=== PATIENT | male | born 1985 | race Two or more races ===

== ENCOUNTER 2018-03-19 11:00 | Emergency (ER) | payer SELFPAY ==
[~2018-03-19] VITALS: Ht 162.6 cm; Wt 77.1 kg
[2018-03-19 11:22] VITALS: BP 122/78
--- NOTE | 2018-03-19 11:39 | Emergency Room Report ---
History of Present Illness General Chief Complaint: Lower Back Pain or Injury Source: Patient Present Illness HPI Patient sent in for lumbar pain. He says he has had this for 2 years but recently after straining his back at work the pain became severe. He's never had a full evaluation of his back before with x-rays. He was bending at work when the pain became more severe. No meds taken. Pain now rated 6/10. He feels a muscle "ball" in left lower back (spasm). Worse when he bends over and lifts things. No fevers, numbness, weakness, incontinence, saddle numbness, blood thinners, trauma, oncologic problems. No chest pain, NVD, dysuria, extremity pain, headache. He works at a [employer]. Allergies: Coded Allergies: No Known Allergies (Unverified , 03/19/18) Patient History Past Medical History: see triage record Social History: Reports: smoking, alcohol use Social History Narrative works at [employer] Reviewed Nursing Documentation: PMH: Agreed; PSxH: Agreed Nursing Documentation-PMH Past Medical History: No Stated History Review of Systems All Other Systems: negative except mentioned in HPI Physical Exam Vital Signs Date Time Temp Pulse Resp B/P (MAP) Pulse Ox O2 Delivery O2 Flow Rate FiO2 03/19/18 11:15 98.2 72 18 122/78 95 Room Air 98.2 Sp02 EP Interpretation: reviewed, normal General Appearance: well appearing, no apparent distress, GCS 15 Head: normocephalic, atraumatic Eyes: bilateral eye normal inspection, bilateral eye PERRL ENT: hearing grossly normal, normal voice, moist mucus membranes Neck: full range of motion, supple, no bony tend Respiratory: chest non-tender, lungs clear, no respiratory distress, speaking full sentences Cardiovascular #1: regular rate, rhythm Cardiovascular #2: 2+ radial (L) Gastrointestinal: normal inspection Musculoskeletal: digits/nails normal, gait/station normal, other - paraspinous tenderness with muscle spasm bilat, more on L Neurologic: alert, motor strength/tone normal, DTRs symmetric, sensory intact, cerebellar normal, normal gait, speech normal Psychiatric: mood/affect normal Skin: no rash Medical Decision Making Diagnostic Impression: Primary Impression: Lumbar strain Qualified Codes: S39.012A - Strain of muscle, fascia and tendon of lower back , initial encounter Additional Impression: Muscle spasm ER Course Patient presents with acute exacerbation of lumbar pain. The mechanism does not require x-rays however the fact that he's never had a workup after injury 2 years ago, x-rays are indicated at this time. In addition a urinalysis be checked. The patient be given Motrin. Xrays without significant abnormalities. UA clear. Improved with motrin. Discussed findings and need for physical therapy and exercises. Patient stable for outpatient observation and treatment. Laboratory Tests Test 03/19/18 12:30 Urine Color Pale yellow Urine Appearance Clear Urine pH 6 (4.5-8.0) Urine Specific [place] 1.015 (1.005-1.035) Urine Protein Negative (NEGATIVE) Urine Glucose (UA) Negative (NEGATIVE) Urine Ketones Negative (NEGATIVE) Urine Occult Blood Negative (NEGATIVE) Urine Nitrite Negative (NEGATIVE) Urine Bilirubin Negative (NEGATIVE) Urine Urobilinogen Normal MG/DL (0.0-1.0) Urine Leukocyte Esterase Negative (NEGATIVE) Other X-Ray Diagnostic Results Other X-Ray Diagnostic Results : X-Ray ordered: Lumbar sacral spine films # of Views/Limited Vs Complete: 3 View Indication: Pain EP Interpretation: Yes Interpretation: no dislocation, no soft tissue swelling, no fractures Impression: Other Electronically Signed by: Electronically signed by Luis Grimes MD Last Vital Signs Date Time Temp Pulse Resp B/P (MAP) Pulse Ox O2 Delivery O2 Flow Rate FiO2 03/19/18 13:54 98.2 18 125/87 95 Room Air 208.8 03/19/18 11:15 72 Status: improved Disposition: HOME, SELF-CARE Condition: Improved Scripts Tramadol Hcl* (ULTRAM*) 50 Mg Tablet 50 MG ORAL Q6H PRN for For Pain, #8 TAB 0 Refills Prov: Luis Grimes M.D. 03/19/18 Ibuprofen* (MOTRIN*) 600 Mg Tablet 600 MG ORAL Q6H PRN for For Pain, #20 TAB Prov: Luis Grimes M.D. 03/19/18 Methocarbamol* (ROBAXIN*) 500 Mg Tablet 500 MG PO TID, #12 TAB 0 Refills Prov: Luis Grimes M.D. 03/19/18 Luis Grimes M.D. Mar 19, 2018 11:39
[2018-03-19 13:02] LABS: APPEARANCE,URINE CLEAR; BILIRUBIN, URINE NEGATIVE (NEGATIVE); COLOR,URINE PALE YELLOW; GLUCOSE, URINE (UA) NEGATIVE (NEGATIVE); KETONES,URINE NEGATIVE (NEGATIVE); LEUKOCYTE ESTERASE ,URINE NEGATIVE (NEGATIVE); NITRITE,URINE NEGATIVE (NEGATIVE); PH,URINE 6 (4.5-8.0); PROTEIN,URINE NEGATIVE (NEGATIVE); UROBILINOGEN,URINE NORMAL MG/DL (0.0-1.0)
[2018-03-19] MEDS ORDERED: IBUPROFEN600 MG ORAL (13:45)
[2018-03-19] MEDS ORDERED: ROBAXIN500 MG PO (13:45)
[2018-03-19] MEDS ORDERED: TRAMADOL HCL50 MG ORAL (13:45)
[2018-03-19 13:54] VITALS: BP 125/87
--- NOTE | 2018-03-19 15:22 | Diagnostic Imaging Report ---
Indication: Pain Technique: 3 views of the lumbar spine Comparison: None Findings: Bony alignment is normal. Vertebral body heights are preserved. Disc spaces are preserved. Impression: Negative
== END 2018-03-19 13:55 | disposition home or self-care (01) ==
LOC: EMR 12:12
DX: S39.012A Strain of muscle, fascia and tendon of lower back, initial encounter (principal); X50.1XXA Overexertion from prolonged static or awkward postures, initial encounter; Y92.89 Other specified places as the place of occurrence of the external cause; M62.830 Muscle spasm of back
CPT/HCPCS: 72020; 81003; 99284